=== PATIENT | female | born 1930 | race Caucasian/White ===

== ENCOUNTER 2016-08-10 06:41 | Outpatient (CLI) | payer MEDICARE, BC ==
[~2016-08-10] VITALS: Ht 165.1 cm; Wt 72.7 kg
--- NOTE | ~2016-08-10 | HEMODYNAMI ---
PATIENT:NELY NAVA MEDICAL RECORD: [id number] : 32 LOCATION:[facility] ADMISSION DATE: 08/10/16 Generatedon:08/10/20169:35 Patient name: NELY NAVA Patient #: [id number] SSN: : 04/1931 Date of study: 08/10/2016 Page: Of Hemodynamic Procedure Report Patient Data Patient Demographics Procedure consent was obtained First Name: NELY Gender: Female Last Name: ELIJAH : 1930 Patient #: [id number] Age: 85 year(s) Race: Unknown Additional ID: [id number] Contact details Address: [address] [place] [address] [facility] State: [place] City: [place] Zip code: [address] Past Medical History Allergies: No known allergies Admission Admission Data Admission Date: 08/10/2016 Admission Time: 6:41 Lab Results Lab Result Date: 08/10/2016 Lab Result Time: 0:00 Biochemistry Name Units Result Min Max BUN mg/dl 21 --(----)-* 7 18 Creatinine mg/dl 1.2 --(---*)-- 0.6 1.3 CBC Name Units Result Min Max Hemoglobin g/dl 11 *-(----)-- 13.5 17.5 Procedure Procedure Types Cath Procedure Miscellaneous Procedures Moderate Sedation up to 15 minutes Peripheral Cath Diagnostic Procedure Cath Peripheral Iuibj-Etziunj-Gvp-Off Procedure Description Procedure Date Procedure Date: 08/10/2016 Procedure Start Time: 9:24 Procedure End Time: 9:34 Procedure Staff Name Function Morgan Judge MD Performing Physician Juice Lord RT Scrub Ale King RN Nurse Tra Bernal RT Monitor Procedure Data Cath Procedure Fluoroscopy Diagnostic fluoroscopy Total fluoroscopy Time: 0.6 time: 0.6 min min Diagnostic fluoroscopy Total fluoroscopy dose: 64 dose: 64 mGy mGy Contrast Material Contrast Material Type Amount (ml) Isovue 300 68 Entry Location Entry Primary Successful Side Size Upsize Upsize Entry Closure Succes sful Closure Location (Fr) 1 (Fr) 2 (Fr) Remarks Device Remarks Femoral Right 5 Fr Vascade artery Closure System Estimated blood loss: 10 ml Diagnostic catheters Device Type Used For End Catheter Placement Cordis Tempo 5Fr UF Procedure catheter Procedure Complications No complications Procedure Medications Medication Administration Route Dosage Oxygen NC 2 l/min Heparin Flush Bag added to field 2 bags (1000units/500ml NS) Lidocaine 2% added to field 20 Zofran I.V. 4 mg Versed I.V. 1 mg Fentanyl I.V. 50 mcg Versed I.V. 1 mg Fentanyl I.V. 50 mcg Hemodynamics Rest HGB: 11 (g/dl) Heart Rate: 69 (bpm) Snapshots Pre Cath Intra NCS Post Cath Vital Signs Time Heart Resp SPO2 NIBP (mmHg) Rhythm Pain Sedation Rate (ipm) (%) Status Level (bpm) 9:04:38 70 14 99 174/87(134) A-Fib 0 (11) 10(A) , No pain 9:08:58 60 14 98 171/80(132) A-Fib 0 (11) 10(A) , No pain 9:13:57 64 16 99 Measuring A-Fib 0 (11) 10(A) , No pain 9:14:28 67 16 98 134/66(117) A-Fib 0 (11) 10(A) , No pain 9:18:46 66 16 99 134/57(91) A-Fib 0 (11) 10(A) , No pain 9:23:06 63 16 99 122/55(90) A-Fib 0 (11) 9(A) , No pain 9:27:20 59 16 99 121/60(87) A-Fib 0 (11) 9(A) , No pain 9:31:13 62 16 99 110/53(89) A-Fib 0 (11) 9(A) , No pain Medications Time Medication Route Dose Verified Delivered Reason Notes Ef fectiveness by by 9:07:12 Oxygen NC 2 Morgan Ale Per l/min Alfie King RN physician 9:07:19 Heparin Flush added 2 Morgan Mora used for Bag to bags Alfie Judge MD procedure (1000units/500ml field NS) 9:07:27 Zofran I.V. 4 mg Morgan Ale Per pt reports Alfie King RN physician nausea with sedation and pain medication 9:07:28 Lidocaine 2% added 20ml Morgan Mora used for to vial Alfie Judge MD procedure field 9:17:51 Versed I.V. 1 mg Morgan Ale for Alfie King RN sedation 9:18:00 Fentanyl I.V. 50 Morgan Ale for mcg Alfie King RN sedation 9:21:29 Versed I.V. 1 mg Morgan Ale for Alfie King RN sedation 9:21:32 Fentanyl I.V. 50 Morgan Ale for mcg Alfie King RN sedation Procedure Log Time Note 8:42:04 Diagnostic Cath status Elective 8:42:07 Juice Dickensnaveen RT(R) sent for patient. Start room use. 8:43:02 Time tracking: Regular hours 8:43:08 Plan of Care:Hemodynamics will remain stable., Cardiac rhythm will remain stable., Comfort level will be maintained., Respiratory function will remain adequate., Patient/ family verbilizes understanding of procedure., Procedure tolerated without complication., Recovers from procedure without complications.. 8:53:34 Patient received from Pre/Post Procedure Room to CCL 2 Alert and oriented. Tansferred to table in Supine position. 8:53:37 Warm blankets applied, and south hugger turned on for patient comfort. 8:53:38 Correct patient and procedure confirmed by team. 8:53:39 Signed procedure consent form obtained from patient. 8:53:40 ECG and BP/O2 sat monitors applied to patient. 9:03:27 Vital chart was started 9:07:00 Baseline sample Acquired. 9:07:05 Rhythm: sinus rhythm 9:07:09 Full Disclosure recording started 9:07:12 Oxygen 2 l/min NC was administered by Ale King RN; Per physician; 9:07:18 H&P Date Dictated: 08/04/2016 Within 30 days and on chart., H&P Addendum completed by physician on day of procedure. (MUST COMPLETE FOR ALL OUTPATIENTS). 9:07:19 Heparin Flush Bag (1000units/500ml NS) 2 bags added to field was administered by Morgan Judge MD; used for procedure; 9:07:19 Pre-procedure instructions explained to patient. 9:07:19 Pre-op teaching completed and patient verbalized understanding. 9:07:20 Family in waiting room. 9:07:22 Patient NPO since Midnight. 9:07:27 Zofran 4 mg I.V. was administered by Ale King RN; Per physician; pt reports nausea with sedation and pain medication 9:07:28 Lidocaine 2% 20ml vial added to field was administered by Morgan Judge MD; used for procedure; 9:07:38 Patient allergic to No known allergies 9:07:42 Is the patient allergic to Iodine/contrast media? No. 9:07:53 Is patient on blood thinner?No 9:07:58 ACC The patient was administered the following blood thiners within the last 24 hours: None 9:08:04 Patient diabetic? No. 9:08:07 Previous problem with sedation/anesthesia? No ? 9:08:14 Snore? No 9:08:15 Sleep apnea? No 9:08:16 Deviated septum? No 9:08:17 Opens mouth fully? Yes 9:08:18 Sticks out tongue? Yes 9:08:19 Airway obstruction? No ? 9:08:22 Dentures? No ? 9:08:30 Pre procedure: right dorsailis pedis pulse 1+ Palpable, but thready & weak; easily obliterated 9:08:33 Pre procedure: left dorsailis pedis pulse 1+ Palpable, but thready & weak; easily obliterated 9:08:38 Patient pain scale 0/10 ?. 9:08:56 IV patent on arrival in left forearm with 0.9% NaCl at O. 9:08:59 Lab results completed and on chart. 9:09:05 Bilateral groins area was prepped with chlora-prep and draped in sterile fashion 9:09:06 Alarms reviewed by R. N. 9:09:06 Sharps counted by scrub and verified by R.N. 9:09:24 Use device set Femoral Dx 9:09:26 Tegaderm 4 x 4 opened to sterile field. 9:09:27 Acist Hand Control opened to sterile field. 9:09:27 Acist Manifold opened to sterile field. 9:09:28 Acist Syringe opened to sterile field. 9:09:29 Bag Decanter opened to sterile field. 9:09:30 Medline Cath Pack opened to sterile field. 9:09:30 Terumo 5Fr Hammond Sheath opened to sterile field. 9::30 St Billy 260cm J .035 wire opened to sterile field. 9:12:47 Physician paged 9:16:53 Lab Result : Creatinine 1.2 mg/dl 9::53 Lab Result : BUN 21 mg/dl 9::53 Lab Result : Hemoglobin 11 g/dl :: --------ALL STOP TIME OUT------ : Final Timeout: patient, procedure, and site verified with staff and physician. All members of the team are in agreement. 9:: Bilateral groins site verified by team. 9::31 Physical assessment completed. ASA score P 2 - A patient with mild systemic disease as per Morgan Judge MD. 9:17:35 Sedation plan: IV Moderate Sedation Versed, Fentanyl 9:17:51 Versed 1 mg I.V. was administered by Ale King RN; for sedation; 9:18:00 Fentanyl 50 mcg I.V. was administered by Ale King RN; for sedation; 9::29 Versed 1 mg I.V. was administered by Ale King RN; for sedation; 9::32 Fentanyl 50 mcg I.V. was administered by Ale King RN; for sedation; 9:24:11 Procedure started. 9:24:22 Local anesthetic to right femoral artery with Lidocaine 2% by Morgan Judge MD.INITIAL ACCESS ONLY 9:24:32 A 5 Fr sheath was inserted into the Right Femoral artery 9:25:05 A Acronis 5Fr UF catheter was advanced over the wire and used for Procedure. 9:25:11 Abdominal Aortagram was performed. 9:25:14 Left leg runoff performed. 9:25:15 Right leg runoff performed. 9::57 Catheter removed. 9:26:09 Vascade 5Fr Closure Device opened to sterile field. 9:27:02 Sheath removed intact; hemostasis achieved with Vascade Closure System to the Right Femoral artery. 9:27:04 Procedure ended.(Physican Out) 9::28 Fluoroscopy time 00.60 minutes. ::34 Fluoroscopy dose: 64 mGy ::34 Flurop Dose total: 64 9:27:42 Contrast amount:Isovue 300 68ml. 9:27:43 Sharps counted by scrub and verified by R.N. 9:27:45 Insertion/operative site no bleeding no hematoma. 9:27:47 Post-op/insertion site Right Femoral artery dressed using a 4 x 4 and Tegaderm. 9:27:49 Post Procedure Pulses reassessed and unchanged 9:27:51 Post-procedure physical assessment completed. ASA score P 2 - A patient with mild systemic disease as per Morgan Judge MD. 9:27:56 Post procedure rhythm: unchanged. 9:27:58 Estimated blood loss: 10 ml 9:28:00 Post procedure instruction explained to patient.Patient verbalizes understanding. 9:28:01 Patient needs reinforcement of post procedure teaching. 9:28:12 Procedure type changed to Cath procedure, Miscellaneous Procedures, Moderate Sedation up to 15 minutes, Peripheral Cath Diagnostic Procedure, Cath Peripheral, Tbfuo-Hlrqpui-Qow-Off 9:28:16 Procedure Complication : No complications 9:28:54 Procedure and supply charges have been captured, reviewed, submitted and are correct. 9:34:06 Vital chart was stopped 9:34:07 See physician's report for complete and final results. 9:34:08 Report given to Pre/Post Procedure Room. 9:34:12 Patient transfered to Pre/Post Procedure Room with Stretcher. 9:34:14 Procedure ended. 9:34:14 Full Disclosure recording stopped 9:34:23 End room use (Document Last) Device Usage Item Manufacture Quantity Catalog Number Hospital Part Current Minimal Lot# / Name Charge Number Stock Stock Serial# Code Tegaderm 1 [id number] 5 4 x 4 Acist Acist 1 04480 499238 [id number] 5 Hand Medical Control Systems Inc Acist Acist 1 19157 273060 [id number] [id number] 5 Manifold Medical Systems Inc Acist Acist 1 35284 691757 744396 [id number] 20 Syringe Medical Systems Inc Bag Microtek 1 2002S 172972 39315 [id number] 5 Decanter [employer] Inc. Medline Cardinal 1 [id number] [id number] [id number] 5 Cath Health Pack Terumo Terumo 1 [id number] [id number] 939992 [id number] [address] Billy 1 [id number] [id number] 856148 039234 30 260cm J .035 wire Cordis Cardinal 1 [id number] 643295 [id number] [id number] 10 [facility] 5Fr UF catheter Vascade Cardiva 1 [id number] [id number] 10125 [id number] 10 5Fr Medical, Closure Inc. Device Signature Audit [place] Stage Time Signature Unsigned Intra-Procedure 08/10/2016 Tra Bernal 9:35:31 AM RT(R) Signatures Monitor : Tra Bernal RT Signature : Date : Time : [address] [address]
[2016-08-10] MEDS ORDERED: ALTACE5 MG PO (07:05)
[2016-08-10] MEDS ORDERED: HYDROCODONE-APA1 TAB PO (07:06)
[2016-08-10] MEDS ORDERED: PENTOXIFYLLINE400 MG PO (07:07)
[2016-08-10] MEDS ORDERED: ELIQUIS5 MG PO (07:07)
[2016-08-10] MEDS ORDERED: COSOPT EYE DROPS5 ML EACH EYE (07:08)
[2016-08-10] MEDS ORDERED: CALCIUM 600+D T1 TA1 PO (07:09)
[2016-08-10] MEDS ORDERED: XALATAN 0.0052.5 ML EACH EYE (07:09)
[2016-08-10] MEDS ORDERED: EZFE 200200 MG PO (07:10)
[2016-08-10 07:21] LABS: BASOPHILS 0.2 % (0.0-2.0); EOSINOPHILS 2.2 % (0-7); HEMATOCRIT 35.2 % (36.0-48.0); IMMATURE GRANULOCYTES 0.2 % (0-5); LYMPHOCYTES 14.9 % (15-50); MCH 28.1 pg (26.0-34.0); MCHC 31.3 g/dL (31.0-37.0); MEAN PLATELET VOLUME 10.1 fL (7.4-10.4); MONOCYTES 8.9 % (2-11); NEUTROPHILS 73.6 % (40-80); PLATELET COUNT 247 10x3/uL (130-400); RBC 3.91 10x6/uL (4.00-5.40); RDW 15.1 % (11.5-14.5); WBC 9.9 10x3/uL (4.8-10.8)
[2016-08-10 07:23] VITALS: BP 148/69; Ht 165.1 cm; Wt 72.7 kg
[2016-08-10 07:28] LABS: ANION GAP 13.5 mmol/L (8-16); CARBON DIOXIDE 25.7 mmol/L (21.0-32.0); CREATININE - SERUM 1.2 mg/dL (0.6-1.3); POTASSIUM - SERUM 4.2 mmol/L (3.5-5.1)
--- NOTE | 2016-08-10 10:00 | NUR ---
IN BED SLEEPING, VSS. 2L NC, NO RESP DISTRESS NOTED. RIGHT GROIN CDI, NO BLEEDING OR HEMATOMA NOTED. PULSES PALPABLE X4. INSTRUCTED PT TO KEEP HEAD FLAT ON PILLOW AND RIGHT LEG STRAIGHT.
--- NOTE | 2016-08-10 10:29 | NUR ---
RESTING IN BED WITH EYES CLOSED, VSS. 2L NC, NO DISTRESSS NOTED. RIGHT GROIN CDI, NO BLEEDING OR HEMATOMA NOTED. NO C/O CHEST PAIN OR NAUSEA AT THIS TIME. WILL CONTINUE TO MONITOR.
--- NOTE | 2016-08-10 11:13 | NUR ---
SANDWICH TRAY GIVEN. NO C/O N/V. VSS.
--- NOTE | 2016-08-10 11:23 | NUR ---
HOB ELEVATED 30 DEGREES. RIGHT GROIN CDI, NO BLEEDING OR HEMATOMA NOTED.
--- NOTE | 2016-08-10 11:35 | NUR ---
LEFT FA PIV D/C'D WITH CATHETER INTACT, BANDAID PLACED TO SITE. UP TO BEDSIDE TO GET DRESSED.
--- NOTE | 2016-08-10 11:40 | NUR ---
UP TO RESTROOM TO VOID.
--- NOTE | 2016-08-10 11:49 | NUR ---
DISCHARGE INSTRUCTIONS GIVEN, VERBALIZED UNDERSTANDING. TAKEN OUT VIA WHEELCHAIR BY CATH SAS ADMINISTRATOR. LEFT FACILITY WITH FAMILY MEMBER AND ALL PERSONAL BELONGINGS.
--- NOTE | 2016-08-11 14:38 | OP ---
PATIENT NAME: NELY NAVA MEDICAL RECORD: [id number] :32 LOCATION:[facility] ADMISSION DATE: SURGEON: DOMINIC LONG MD DATE OF OPERATION: 08/10/2016 PROCEDURES: 1. Aortofemoral runoff. 2. Abdominal aortography INDICATION: Nonhealing ulcer of left lower extremity, peripheral vascular disease. DESCRIPTION OF THE PROCEDURE: After informed consent was obtained and after detailed explanation of risks, benefits as well as alternative therapies, the patient elected to proceed with angiogram and aortofemoral runoff. The right femoral area was prepped and draped in normal sterile fashion. The right femoral artery was cannulated via modified Seldinger technique with placement of 5-Malagasy sheath. All catheters exchanged through this sheath. FINDINGS: The abdominal aortography was performed. The catheter was pulled down for aortofemoral runoff. Abdominal aortography reveals no significant abdominal aortic disease. No dissection. No aneurysmal formation. No significant renal artery stenosis. RIGHT LEG: A. Iliac: The common internal and external iliacs have mild irregularities, no flow-limiting stenosis, none greater than 20%. B. Femoral system: The common superficial and deep femoral have moderate irregularities, but no flow-limiting stenosis. No stenosis greater than 20%. C. Popliteal and infrapopliteal vessels are widely patent with good 3-vessel runoff to the foot, although mildly diffusely diseased, but preserved to the foot. LEFT LEG: A. Iliac: The common internal and external iliacs have mild irregularities, no flow-limiting stenosis, none greater than 20%. B. Femoral system: The common superficial and deep femoral have moderate irregularities, but no flow-limiting stenosis. No stenosis greater than 20%. C. Popliteal and infrapopliteal vessels are widely patent with good 3-vessel runoff to the foot, although mildly diffusely diseased, but preserved to the foot. OVERALL IMPRESSION: Minimal peripheral vascular disease is present. No flow-limiting stenosis. Her nonhealing ulcer is not secondary to arterial vascular insufficiency. TRANSINT:[id number] Voice Confirmation ID: [id number] DOCUMENT ID: [id number] OPERATIVE REPORT [id number] AMBERNELY Jordan DOMINIC LONG MD at 1432 CC: [id number] DICTATION DATE: 08/10/16 0935 ASSISTANT WAREHOUSE MANAGER: 08/10/16 1112 DEP CLI 08/10/16 [facility] [address] [place] [address]
== END 2016-08-10 11:49 | disposition home or self-care (01) ==
LOC: D.CATH 06:41
PROVIDERS: Internal Medicine Interventional Cardiology
DX: L97.929 Non-pressure chronic ulcer of unspecified part of left lower leg with unspecified severity (principal); I70.203 Unspecified atherosclerosis of native arteries of extremities, bilateral legs

== ENCOUNTER → 2018-01-03 13:04 | Outpatient (CLI) | payer MEDICARE, BC ==
[2016-08-10 07:23] VITALS: BMI 26.6
[~2018-01-03 13:04] MED LIST: ALTACE5 MG PO; CALCIUM 600+D T1 TA1 PO; COSOPT EYE DROPS5 ML EACH EYE; ELIQUIS5 MG PO; EZFE 200200 MG PO; HYDROCODONE-APA1 TAB PO; PENTOXIFYLLINE400 MG PO; XALATAN 0.0052.5 ML EACH EYE
[2018-01-03 13:26] LABS: BASOPHILS 0.4 % (0-2); EOSINOPHILS 3.1 % (0-7); HEMATOCRIT 30.3 % (36.0-48.0); HEMOGLOBIN 8.9 g/dL (12-16); IMMATURE GRANULOCYTES 0.1 % (0-5); LYMPHOCYTES 11.2 % (15-50); MCH 26.3 pg (26.0-34.0); MCHC 29.4 g/dL (31.0-37.0); MCV 89.6 fL (80.0-100.0); MEAN PLATELET VOLUME 9.8 fL (7.4-10.4); MONOCYTES 10.1 % (2-11); NEUTROPHILS 75.1 % (40-80); PLATELET COUNT 291 10x3/uL (130-400); RBC 3.38 10x6/uL (4.00-5.40); RDW 17.5 % (11.5-14.5); WBC 8.5 10x3/uL (4.8-10.8)
[2018-01-03 13:37] LABS: ALBUMIN 2.6 g/dL (3.4-5.0); ANION GAP 8.9 mmol/L (8-16); BILIRUBIN - TOTAL 0.46 mg/dL (0.2-1.3); CALCIUM 8.2 mg/dL (8.5-10.1); CREATININE - SERUM 1.1 mg/dL (0.6-1.3); POTASSIUM - SERUM 4.9 mmol/L (3.5-5.1); PROTEIN - SERUM 7.2 g/dL (6.4-8.2)
== END | disposition home or self-care (01) ==
LOC: D.LABREF 13:04
PROVIDERS: Family Medicine
DX: I87.2 Venous insufficiency (chronic) (peripheral) (principal); L97.829 Non-pressure chronic ulcer of other part of left lower leg with unspecified severity

== ENCOUNTER → 2018-03-23 13:22 | Outpatient (CLI) | payer MEDICARE, BC ==
[2016-08-10 07:23] VITALS: BMI 26.6
[2018-03-23 14:11] LABS: BASOPHILS 0.3 % (0-2); EOSINOPHILS 6.1 % (0-7); HEMATOCRIT 30.2 % (36.0-48.0); IMMATURE GRANULOCYTES 0.3 % (0-5); LYMPHOCYTES 11.6 % (15-50); MCH 26.3 pg (26.0-34.0); MCHC 29.8 g/dL (31.0-37.0); MCV 88.3 fL (80.0-100.0); MEAN PLATELET VOLUME 9.7 fL (7.4-10.4); MONOCYTES 9.4 % (2-11); NEUTROPHILS 72.3 % (40-80); PLATELET COUNT 374 10x3/uL (130-400); RBC 3.42 10x6/uL (4.00-5.40); WBC 9.6 10x3/uL (4.8-10.8)
== END | disposition home or self-care (01) ==
LOC: D.LABREF 13:22
PROVIDERS: Family Medicine
DX: D64.9 Anemia, unspecified (principal)

== ENCOUNTER → 2018-04-18 17:32 | Outpatient (CLI) | payer MEDICARE, BC ==
[2016-08-10 07:23] VITALS: BMI 26.6
[2018-04-18 17:37] LABS: BASOPHILS 0.4 % (0-2); EOSINOPHILS 5.6 % (0-7); HEMATOCRIT 28.2 % (36.0-48.0); HEMOGLOBIN 8.2 g/dL (12-16); IMMATURE GRANULOCYTES 0.1 % (0-5); LYMPHOCYTES 14.7 % (15-50); MCH 25.3 pg (26.0-34.0); MCHC 29.1 g/dL (31.0-37.0); MEAN PLATELET VOLUME 10.1 fL (7.4-10.4); MONOCYTES 11.3 % (2-11); NEUTROPHILS 67.9 % (40-80); RBC 3.24 10x6/uL (4.00-5.40); RDW 16.6 % (11.5-14.5); WBC 7.5 10x3/uL (4.8-10.8)
[2018-04-18 17:38] LABS: PLATELET COUNT 279 10x3/uL (130-400)
== END | disposition home or self-care (01) ==
LOC: D.LABREF 17:32
PROVIDERS: Family Medicine
DX: I83.009 Varicose veins of unspecified lower extremity with ulcer of unspecified site (principal)

== ENCOUNTER → 2018-05-18 14:52 | Outpatient (CLI) | payer MEDICARE, BC ==
[2016-08-10 07:23] VITALS: BMI 26.6
[2018-05-18 16:24] LABS: BASOPHILS 0.5 % (0-2); EOSINOPHILS 3.4 % (0-7); HEMATOCRIT 31.7 % (36.0-48.0); HEMOGLOBIN 9.5 g/dL (12-16); IMMATURE GRANULOCYTES 0.1 % (0-5); LYMPHOCYTES 15.1 % (15-50); MCH 26.5 pg (26.0-34.0); MCV 88.3 fL (80.0-100.0); MEAN PLATELET VOLUME 9.8 fL (7.4-10.4); MONOCYTES 9.9 % (2-11); PLATELET COUNT 290 10x3/uL (130-400); RBC 3.59 10x6/uL (4.00-5.40); RDW 18.1 % (11.5-14.5); WBC 8.1 10x3/uL (4.8-10.8)
== END | disposition home or self-care (01) ==
LOC: D.LABREF 14:52
PROVIDERS: Family Medicine
DX: D64.9 Anemia, unspecified (principal)

== ENCOUNTER → 2018-06-20 18:11 | Outpatient (CLI) | payer MEDICARE, BC ==
[2016-08-10 07:23] VITALS: BMI 26.6
[2018-06-20 19:49] LABS: HEMATOCRIT 28.9 % (36.0-48.0); HEMOGLOBIN 8.5 g/dL (12-16); MCH 25.8 pg (26.0-34.0); MCHC 29.4 g/dL (31.0-37.0); MCV 87.6 fL (80.0-100.0); MEAN PLATELET VOLUME 9.7 fL (7.4-10.4); PLATELET COUNT 297 10x3/uL (130-400); RDW 17.3 % (11.5-14.5); WBC 8.2 10x3/uL (4.8-10.8)
[2018-06-20 20:22] LABS: EOSINOPHILS 1 % (0-7); LYMPHOCYTES 11 % (15-50); MONOCYTES 8 % (2-11); NEUTROPHILS 80 % (40-80); PLATELET ESTIMATE NORMAL
[2018-06-20 20:23] LABS: ELLIPTOCYTES 1+; TARGET CELLS OCC
== END | disposition home or self-care (01) ==
LOC: D.LABREF 18:11
PROVIDERS: Family Medicine
DX: D64.9 Anemia, unspecified (principal)

== ENCOUNTER → 2018-07-20 14:51 | Outpatient (CLI) | payer MEDICARE, BC ==
[2016-08-10 07:23] VITALS: BMI 26.6
[2018-07-20 16:00] LABS: BASOPHILS 0.3 % (0-2); EOSINOPHILS 2.7 % (0-7); HEMATOCRIT 28.1 % (36.0-48.0); HEMOGLOBIN 8.3 g/dL (12-16); IMMATURE GRANULOCYTES 0.2 % (0-5); LYMPHOCYTES 13.6 % (15-50); MCH 25.9 pg (26.0-34.0); MCHC 29.5 g/dL (31.0-37.0); MCV 87.5 fL (80.0-100.0); MEAN PLATELET VOLUME 9.9 fL (7.4-10.4); MONOCYTES 10.4 % (2-11); NEUTROPHILS 72.8 % (40-80); PLATELET COUNT 316 10x3/uL (130-400); RBC 3.21 10x6/uL (4.00-5.40); RDW 16.7 % (11.5-14.5); WBC 8.6 10x3/uL (4.8-10.8)
== END | disposition home or self-care (01) ==
LOC: D.LABREF 14:51
PROVIDERS: ATTEND Emergency Medicine
DX: D64.9 Anemia, unspecified (principal)

== ENCOUNTER → 2018-08-15 16:26 | Outpatient (CLI) | payer MEDICARE, BC ==
[2016-08-10 07:23] VITALS: BMI 26.6
[2018-08-15 16:59] LABS: BASOPHILS 0.3 % (0-2); EOSINOPHILS 0.8 % (0-7); HEMATOCRIT 29.9 % (36.0-48.0); HEMOGLOBIN 8.8 g/dL (12-16); IMMATURE GRANULOCYTES 0.2 % (0-5); LYMPHOCYTES 12.5 % (15-50); MCH 26.7 pg (26.0-34.0); MCHC 29.4 g/dL (31.0-37.0); MCV 90.9 fL (80.0-100.0); MEAN PLATELET VOLUME 9.9 fL (7.4-10.4); MONOCYTES 15.7 % (2-11); NEUTROPHILS 70.5 % (40-80); PLATELET COUNT 312 10x3/uL (130-400); RBC 3.29 10x6/uL (4.00-5.40); RDW 17.2 % (11.5-14.5)
== END | disposition home or self-care (01) ==
LOC: D.LABREF 16:26
PROVIDERS: ATTEND Family Medicine
DX: D64.9 Anemia, unspecified (principal)

== ENCOUNTER → 2018-12-05 13:31 | Outpatient (CLI) | payer MEDICARE, BC ==
[2016-08-10 07:23] VITALS: BMI 26.6
[2018-12-05 13:47] LABS: BASOPHILS 0.4 % (0-2); EOSINOPHILS 5.3 % (0-7); HEMATOCRIT 22.2 % (36.0-48.0); IMMATURE GRANULOCYTES 0.4 % (0-5); LYMPHOCYTES 13.3 % (15-50); MCH 27.8 pg (26.0-34.0); MCHC 30.6 g/dL (31.0-37.0); MCV 90.6 fL (80.0-100.0); MEAN PLATELET VOLUME 9.3 fL (7.4-10.4); NEUTROPHILS 69.6 % (40-80); PLATELET COUNT 323 10x3/uL (130-400); RBC 2.45 10x6/uL (4.00-5.40); RDW 17.5 % (11.5-14.5); WBC 8.1 10x3/uL (4.8-10.8)
[2018-12-05 14:18] LABS: HEMOGLOBIN 6.8 g/dL (12-16)
== END | disposition home or self-care (01) ==
LOC: D.LABREF 13:31
PROVIDERS: ATTEND Family Medicine
DX: D64.9 Anemia, unspecified (principal)

== ENCOUNTER → 2018-12-28 14:32 | Outpatient (CLI) | payer MEDICARE, BC ==
[2016-08-10 07:23] VITALS: BMI 26.6
[2018-12-28 16:28] LABS: BASOPHILS 0.4 % (0-2); EOSINOPHILS 5.9 % (0-7); HEMATOCRIT 25.8 % (36.0-48.0); HEMOGLOBIN 7.7 g/dL (12-16); IMMATURE GRANULOCYTES 0.3 % (0-5); LYMPHOCYTES 16.3 % (15-50); MCH 27.8 pg (26.0-34.0); MCHC 29.8 g/dL (31.0-37.0); MCV 93.1 fL (80.0-100.0); MEAN PLATELET VOLUME 9.9 fL (7.4-10.4); MONOCYTES 11.1 % (2-11); PLATELET COUNT 303 10x3/uL (130-400); RBC 2.77 10x6/uL (4.00-5.40); WBC 7.9 10x3/uL (4.8-10.8)
== END | disposition home or self-care (01) ==
LOC: D.LABREF 14:32
PROVIDERS: ATTEND Family Medicine
DX: D64.9 Anemia, unspecified (principal)

== ENCOUNTER → 2019-01-30 14:34 | Outpatient (CLI) | payer MEDICARE, BC ==
[2016-08-10 07:23] VITALS: BMI 26.6
[2019-01-30 15:17] LABS: BASOPHILS 0.5 % (0-2); EOSINOPHILS 6.4 % (0-7); HEMATOCRIT 25.5 % (36.0-48.0); HEMOGLOBIN 7.9 g/dL (12-16); IMMATURE GRANULOCYTES 0.1 % (0-5); LYMPHOCYTES 16.5 % (15-50); MCH 27.6 pg (26.0-34.0); MCV 89.2 fL (80.0-100.0); MEAN PLATELET VOLUME 9.7 fL (7.4-10.4); NEUTROPHILS 65.5 % (40-80); PLATELET COUNT 249 10x3/uL (130-400); RBC 2.86 10x6/uL (4.00-5.40); RDW 15.8 % (11.5-14.5); WBC 8.2 10x3/uL (4.8-10.8)
== END | disposition home or self-care (01) ==
LOC: D.LABREF 14:34
PROVIDERS: ATTEND Family Medicine
DX: D64.9 Anemia, unspecified (principal)

== ENCOUNTER → 2019-02-06 15:50 | Outpatient (CLI) | payer MEDICARE, BC ==
[2016-08-10 07:23] VITALS: BMI 26.6
[2019-02-06 16:34] LABS: BASOPHILS 0.4 % (0-2); EOSINOPHILS 7.7 % (0-7); HEMATOCRIT 26.6 % (36.0-48.0); HEMOGLOBIN 8.2 g/dL (12-16); IMMATURE GRANULOCYTES 0.4 % (0-5); LYMPHOCYTES 16.9 % (15-50); MCH 27.9 pg (26.0-34.0); MCHC 30.8 g/dL (31.0-37.0); MCV 90.5 fL (80.0-100.0); MEAN PLATELET VOLUME 9.7 fL (7.4-10.4); MONOCYTES 12.7 % (2-11); NEUTROPHILS 61.9 % (40-80); PLATELET COUNT 256 10x3/uL (130-400); RBC 2.94 10x6/uL (4.00-5.40); RDW 16.4 % (11.5-14.5); WBC 8.2 10x3/uL (4.8-10.8)
== END | disposition home or self-care (01) ==
LOC: D.LABREF 15:50
PROVIDERS: ATTEND Family Medicine
DX: D64.9 Anemia, unspecified (principal)

== ENCOUNTER → 2019-03-06 15:13 | Outpatient (CLI) | payer MEDICARE, BC ==
[2016-08-10 07:23] VITALS: BMI 26.6
[2019-03-06 15:42] LABS: BASOPHILS 0.4 % (0-2); EOSINOPHILS 3.6 % (0-7); HEMATOCRIT 31.9 % (36.0-48.0); HEMOGLOBIN 9.5 g/dL (12-16); IMMATURE GRANULOCYTES 0.1 % (0-5); LYMPHOCYTES 14.5 % (15-50); MCH 27.7 pg (26.0-34.0); MCHC 29.8 g/dL (31.0-37.0); MEAN PLATELET VOLUME 9.7 fL (7.4-10.4); MONOCYTES 9.4 % (2-11); PLATELET COUNT 301 10x3/uL (130-400); RBC 3.43 10x6/uL (4.00-5.40); WBC 8.3 10x3/uL (4.8-10.8)
== END | disposition home or self-care (01) ==
LOC: D.LABREF 15:13
PROVIDERS: ATTEND Family Medicine
DX: D64.9 Anemia, unspecified (principal)